=== PATIENT | female | born 1990 | race Caucasian/White ===

== ENCOUNTER 2017-09-01 07:44 | Inpatient (IN) ==
[2017-09-01] MEDS ORDERED: Famotidine 20 MG/2 ML VIAL IVP ONE (08:10)
[2017-09-01] MEDS ORDERED: Metoclopramide 10 MG/2 ML VIAL IVP ONE (08:10)
[2017-09-01] MEDS ORDERED: Ringers Solution, Lactated 1,000 ML IVC ONE (08:10)
[2017-09-01] MEDS ORDERED: CeFAZolin Premix DUPLEX 2,000 MG/50 ML BAG IVPB ONE (08:10)
[2017-09-01] MEDS ORDERED: Ringers Solution, Lactated 1,000 ML IVC SCH (08:15)
[2017-09-01 08:21] LABS: Basophils # 0.1 K/mcL (0.0-0.2); Basophils % 0.4 %; Eosinophils # 0.1 K/mcL (0.0-0.6); Eosinophils % 0.7 %; Hematocrit 28.2 % (35.3-44.9); Hemoglobin 8.6 g/dL (11.5-15.4); Immature Granulocytes % 1.1 % (0-4); Lymphocytes # 2.6 K/mcL (0.6-4.6); Lymphocytes % 19.2 %; Mean Corpuscular HGB Conc 30.5 g/dL (31.6-35.5); Mean Corpuscular Hemoglobin 23.5 pg (28.0-33.3); Mean Platelet Volume 9.5 fL (9.4-12.4); Monocytes # 0.6 K/mcL (0.0-1.3); Monocytes % 4.7 %; Neutrophils # 9.9 K/mcL (1.6-8.9); Platelet Count 296 K/mcL (140-400); Red Blood Count 3.66 M/mcL (3.82-4.97); Red Cell Distribution Width 15.9 % (11.5-14.5); Segmented Neutrophils % 73.9 %
[2017-09-01] MEDS ORDERED: Albuterol 2.5 MG/3 ML NEBULIZER IH ONE (08:24)
--- NOTE | 2017-09-01 08:33 | Anesthesia Evaluation PreOp ---
Date of Encounter: 09/01/17 Time of Encounter: 08:40 - Past History Planned Operation: Repeat Cardiac History: Denies any Significant Hx Pulmonary History: Smoker POLITICAL SCIENCE INSTRUCTOR History: Denies Any Significant HX Other Medical History: Denies Any Significant HX Anesthesia History: No Prior Anesthetic Complications : Yes (37 weeks) Test: Positive () Alcohol Use: none Drug use: none Medications and Allergies Ferrous Sulfate 324 mg PO BID #60 tablet. 08/05/17 [Rx] 3 Allergy/AdvReac Type Severity Reaction Status Date / Time No Known Allergies Allergy Verified 08/05/17 15:42 - Meds/Allergy Pre-op Review Medications Reviewed: Yes Allergies Reviewed: Yes Beta Blockers on Current Med List: No Anesthesia Results - Labs 09/01/17 08:05 Laboratory Tests 09/01/17 08:05 Hgb 8.6 L Hct 28.2 L Plt Count 296 Anesthesia Exam O2 Sat Height 1.55 m Weight 68 kg Height: 5'1 Weight: 149 lbs NPO (# of Hours): MN Pain Scale: 0 - HEENT Pupil (Motor): Pupils equal, EOMI Mallampati: II Teeth: Missing, Poor dentition Oral Opening: Greater than 3 - POLITICAL SCIENCE INSTRUCTOR LOC: Oriented POLITICAL SCIENCE INSTRUCTOR Motor: Normal RUE, Normal LUE, Normal RLE, Normal LLE, Normal Face POLITICAL SCIENCE INSTRUCTOR Sensory: Normal: RUE, LUE, RLE, LLE, Face - Cardiac Rhythm: Regular Murmur: None JVD: No Carotid Bruit: No - Pulmonary Breath Sounds: bilateral Clear Respiratory Effort: Symmetrical Anesthesia Assess/Plan ASA Score: 2 Modified [place] Scale for Level of Consciousness: Cooperative, oriented, and tranquil Anesthetic Plan: Regional Monitoring Plan: Standard Monitors Recovery Plan: PACU (Discussed SAB, possible GA, agrees to proceed)
--- NOTE | 2017-09-01 08:39 | OB/GYN History & Physical ---
Date of Encounter: 09/01/17 Time of Encounter: 08:36 Assessment and Plan (1) 39 weeks gestation of Current visit: Yes Status: Acute (2) Previous delivery affecting , antepartum Current visit: Yes Status: Acute Informed consent previously obtained. All questions answered for the patient. (3) Anemia affecting , antepartum Current visit: Yes Status: Acute Type and screen ordered. Anesthesia aware. (4) Tobacco smoking affecting , antepartum Current visit: Yes Status: Acute Patient has been counseled. (5) Marijuana smoker Current visit: Yes Status: Acute History of Present Illness Chief complaint: repeat section HPI: Ms. Wilson is a 26 year old female G 4 P 2-0-1-2 at 39 0/7 weeks admitted for repeat delivery. She reports this morning she had some leaking after going to the bathroom. She denies any contractions or vaginal bleeding. She reports good movement. complicated by late transfer of care and limited care. She also tested positive and admitted to THC use throughout the . She is anemic and has been taking iron. Past Med Surg Social Fam HX - Past Medical History Source: patient Medical history: no medical history Psychiatric history: anxiety, depression - Past Surgical History Surgical History: (x2) - Social History Smoking Status: Current every day smoker Packs per day: 0.5 Smokeless Tobacco Status: No Alcohol use: none Drug use: marijuana - Family History Brother Living Status: Hx Family Respiratory Disorders: Yes (Asthma) Mother Living Status: Still Living Hx Family Cardiac Disorders: No Hx Family Respiratory Disorders: Yes (COPD) Hx Family Cancer: Yes (Ovarian cancer) Hx Family GI Disorders: No Hx Family Genitourinary Disorders: No Hx Family Endocrine Disorder: No Hx Family Musculoskeletal Disorders: No Hx Family Neuromuscular Disorders: No Hx Family Neurologic Disorders: No Hx Family HEENT Disorders: No Hx Family Autoimmune Disorders: No Hx Family Reproductive Disorders: No Hx Family Psychosocial Disorders: Yes (Anxiety and Depression) Hx Family Medical Disorders: No Obstetrical History - Pregnancies : 4 Para: 2 Ab's: 1 Livin - History/Complications History/Complications: anemia and sections Medications and Allergies Ferrous Sulfate 324 mg PO BID #60 tablet. 08/05/17 [Rx] 3 Allergy/AdvReac Type Severity Reaction Status Date / Time No Known Allergies Allergy Verified 08/05/17 15:42 Review of System OB All systems PM: reviewed and no additional remarkable complaints except as stated Exam - Constitutional Constitutional: well developed, thin (dentition in poor condition and repair) - Neck Neck exam: full ROM - Lungs Respiratory exam: CTAB - Cardiovascular Cardiovascular exam: RRR - Abdomen Abdomen: Present: bowel sounds normal, gravid, non tender - Vulva Vulva: bilateral: normal - Vagina Vagina: Present: normal moisture Results Result Diagrams: 09/01/17 08:05 Abnormal lab results WBC 13.4 K/mcL (4.3-11.1) H 09/01/17 08:05 RBC 3.66 M/mcL (3.82-4.97) L 09/01/17 08:05 Hgb 8.6 g/dL (11.5-15.4) L 09/01/17 08:05 Hct 28.2 % (35.3-44.9) L 09/01/17 08:05 MCV 77.0 fL (83.0-100.0) L 09/01/17 08:05 MCH 23.5 pg (28.0-33.3) L 09/01/17 08:05 MCHC 30.5 g/dL (31.6-35.5) L 09/01/17 08:05 RDW 15.9 % (11.5-14.5) H 09/01/17 08:05 Neutrophils # 9.9 K/mcL (1.6-8.9) H 09/01/17 08:05 All other labs normal. - VTE Reasons for not Prescribing Prophylaxis: Treatment not Indicated - Low risk for VTE
[2017-09-01] MEDS ORDERED: *HR* FentaNYL (PF) 100 MCG/2 ML VIAL ONE (08:40)
[2017-09-01] MEDS ORDERED: Morphine Sulfate/PF 5mg/10mL Vial ONE (08:40)
[2017-09-01] MEDS ORDERED: *HR* Phenylephrine 10 MG/ML VIAL ONE (08:40)
[2017-09-01] MEDS ORDERED: *HR* Oxytocin 10 UNIT/ML VIAL IM ONE (08:40)
[2017-09-01 08:44] LABS: Amphetamine Screen,Urine Negative ng/mL (Cutoff=1000); Barbiturate Screen,Urine Negative ng/mL (Cutoff=200); Benzodiazepines Screen,Urine Negative ng/mL (Cutoff=200); Cannabinoid Screen,Urine Positive ng/mL (Cutoff = 50); Cocaine Screen,Urine Negative ng/mL (Cutoff= 300); Opiate Screen,Urine Negative ng/mL (Cutoff=300); Phencyclidine Screen,Urine Negative ng/mL (Cutoff=25)
[2017-09-01] MEDS ORDERED: MORPHINE SUL Oral CONC 10 MG/0.5 ML ORAL.SYG SL PRN (09:32)
[2017-09-01] MEDS ORDERED: Ondansetron 4 MG/2 ML VIAL IVP PRN ×2 (09:32→18:49)
[2017-09-01] MEDS ORDERED: Ringers Solution, Lactated 1,000 ML ONE (09:45)
[2017-09-01] MEDS ORDERED: EPHEDrine 50 MG/ML VIAL ONE (09:50)
--- NOTE | 2017-09-01 10:08 | Anesthesia Procedures ---
Date of Encounter: 09/01/17 Time of Encounter: 10:06 Procedures: Anesthesia - Epidural/Spinal Patient ID/Chart reviewed: Yes Patient examined: Yes OB Eval: Gestational age: 38 OB Eval: : 2 OB Eval: Hx Para: 1 OB Eval: Dilated at (cm): 2 OB Eval: Contractions: Non-stressed pattern Consent Obtained: Yes Supplemental Oxygen: None/Room Air Site Prep: Aseptic Technique, Sterile prep and drape, 0.5% Chlorhexidine/Alcohol Patient position: upright Local Anesthetic: Lidocaine 1% Amount of Local Anesthetic used: 3 Interspace Used: L2-L3 Loss of Resistance (DALTON): No Blood: No CSF: Yes Paresthesia: No Spinal Needle Gauge: 25 Spinal Dose: marcaine 12, duramorph 0.3, fentanyl 10 mcg Procedure: aseptic, tolerated well, VSS, effective Vitals + FHT's: 112/ 80 76 16 fht 133
[2017-09-01] MEDS ORDERED: Ondansetron 4 MG/2 ML VIAL ONE (10:20)
--- NOTE | 2017-09-01 10:42 | OB/GYN Procedure Note ---
Section - Date of procedure: 09/01/17 Preop diagnosis: desires repeat Post-op diagnosis: same Procedure: section, repeat low transverse Surgeon: Breanne Sparks Estimated blood loss (cc): 400 Was there an assistant portfolio manager present: Yes Bridge Operator Slip: Monie Marquez Anesthesiologist: Donnie Garcia Cnc Machinist: Cisco Snow Anesthesia Type: Spinal section complications: none Disposition: L&D Recovery Room Specimens: Placenta - Infant (s) A Delivery Date: 09/01/17 Delivery Time: 10:01 Presentation: vertex Gender: Male Viability: Viable Pounds: 8 Ounces: 0 Gram Weight: 3.62 kg at 1 minute: 9 at 5 minutes: 9 Specimens collected: cord blood Placenta: spontaneous Cord: 3 umbilical vessels - Narrative Narrative: Patient was taken to the operative suite and placed under spinal anesthetic. She was then prepped and draped in normal sterile fashion in the dorsal supine position. Timeout was then performed. Antibiotics were given at room time. SCDs are on and active. Pfannenstiel skin incision is then made and carried through to underlying layer of fascia. The fascia was then incised in the midline and incision extended laterally with the Wolff scissors. The fascia was tented up and dissected off the rectus muscles sharply. The rectus muscles were in the midline and the peritoneum was tented up and entered sharply with the Metzenbaum scissors. The peritoneal incision was then extended bluntly. The bladder blade was then inserted and the vesicouterine peritoneum was entered sharply. Bladder flap was created digitally. A low transverse uterine incision was then made. The infant vertex was brought to the incision and the infant was delivered using fundal pressure. There was a loose nuchal cord that was reduced. Cord was clamped and cut. was handed to waiting nursery staff. Placenta delivered spontaneously complete and intact with a three-vessel cord. The uterus was cleared of all clots and debris using moist laparotomy sponge. The uterine incision was then closed using 0 Vicryl in a running locked fashion. A second layer of the same suture was used to obtain excellent hemostasis. The abdomen was then cleared of all clots and debris using copious irrigation. The fascial incision was then closed using 0 Vicryl in a running fashion. The skin was closed using 4-0 Vicryl in a subcuticular fashion. Steri- Strips and sterile dressing are then placed. Mother and taken to recovery in stable condition.
--- NOTE | 2017-09-01 13:17 | Anesthesia Evaluation Post Op ---
Date of Encounter: 09/01/17 Time of Encounter: 13:16 - Lungs Lungs: Clear Ascult./Percussion - Airway Airway: Non-obstructed - Cardiovascular Regular Rate - Mental Status Mental Status: Alert & Oriented, Answers Appropriately - Pain Pain Scale: 2 Pain Scale used: Numeric (1 - 10) - Nausea Vomiting Nausea Vomiting: Not Present - Hydration Hydration: NPO - Discharge PostOp Status: Transfer Patient to floor (awake, VSS, pain controlled, discharge to floor)
[2017-09-01] MEDS ORDERED: Metoclopramide 10 MG/2 ML VIAL IVP PRN (18:49)
[2017-09-01] MEDS ORDERED: Sennosides 8.6 MG TABLET PO PRN (18:49)
[2017-09-01] MEDS ORDERED: *HR* OxyCODONE Immed Rel 5 MG TABLET PO PRN (18:49)
[2017-09-01] MEDS ORDERED: Simethicone 80 MG TAB.CHEW PO PRN (18:49)
[2017-09-01] MEDS ORDERED: Acetaminophen 325 MG TABLET PO PRN (18:49)
[2017-09-01] MEDS ORDERED: Oxytocin 20 units/ LR 1000 mL 20 UNIT/1,000 ML BAG IVC SCH ×2 (18:49)
[2017-09-01] MEDS ORDERED: *HR* OxyCODONE/APAP 5/325 TABLET PO PRN (18:49)
[2017-09-01] MEDS: Ibuprofen 600 MG TABLET PO PRN (22:17)
[2017-09-02 04:44] LABS: Basophils % 0.4 %; Eosinophils # 0.1 K/mcL (0.0-0.6); Eosinophils % 0.9 %; Hematocrit 25.5 % (35.3-44.9); Hemoglobin 7.8 g/dL (11.5-15.4); Immature Granulocytes % 0.8 % (0-4); Lymphocytes # 2.2 K/mcL (0.6-4.6); Lymphocytes % 21.3 %; Mean Corpuscular HGB Conc 30.6 g/dL (31.6-35.5); Mean Corpuscular Hemoglobin 23.7 pg (28.0-33.3); Mean Corpuscular Volume 77.5 fL (83.0-100.0); Mean Platelet Volume 9.6 fL (9.4-12.4); Monocytes # 0.7 K/mcL (0.0-1.3); Monocytes % 6.9 %; Neutrophils # 7.2 K/mcL (1.6-8.9); Platelet Count 239 K/mcL (140-400); Red Blood Count 3.29 M/mcL (3.82-4.97); Red Cell Distribution Width 15.9 % (11.5-14.5); Segmented Neutrophils % 69.7 %
[2017-09-02] MEDS: Prenatal Vit/FA 1 EACH TABLET PO SCH (09:01)
[2017-09-02] MEDS: Ibuprofen 600 MG TABLET PO PRN ×2 (09:02→20:01)
--- NOTE | 2017-09-02 10:52 | OB/GYN Progress Note ---
Date of Encounter: 09/02/17 Time of Encounter: 10:49 - Assessment and Plan (1) S/P section Current Visit: Yes Status: Acute Pt meeting post-op milestones. Anticipate discharge home POD#2-3. (2) Nicotine addiction Current Visit: Yes Status: Acute Qualifiers: Nicotine product type: cigarettes Substance use status: uncomplicated Qualified Code(s): F17.210 - Nicotine dependence, cigarettes, uncomplicated (3) Marijuana smoker Current Visit: Yes Status: Acute Subjective - Subjective Patient reports: appetite normal, voiding normally, pain well controlled, ambulating normally : doing well Objective - Vital Signs Latest vital signs: Vital Signs Temp Pulse Pulse Resp BP Pulse Ox 09/02/17 08:35 98.1 F 70 16 101/63 100 09/02/17 04:20 97.7 F 74 14 100/63 99 09/02/17 01:30 98.3 F 75 14 107/64 100 09/01/17 19:15 97.9 F 72 16 106/63 97 09/01/17 16:00 97.5 F L 76 65 16 107/59 100 09/01/17 15:20 97.7 F 73 61 14 110/64 100 09/01/17 14:20 98.0 F 72 68 14 112/70 09/01/17 13:50 97.7 F 76 72 14 110/63 100 09/01/17 13:20 97.8 F 67 70 14 114/57 99 Intake and Output 09/01/17 09/02/17 09/02/17 23:59 07:59 15:59 Intake Total 250 / 250 Output Total 900 / 900 1000 / 1000 Balance -900 / -900 -1000 / -1000 250 / 250 Intake: Oral 250 / 250 Output: Catheter 900 / 900 1000 / 1000 Other: Weight 63.004 kg Patient Weight 09/02/17 23:59 Weight 63.004 kg - Exam Lungs: bilateral: normal Chest: Normal S1, Normal S2 Extremities: Present: normal Abdomen: Present: soft, tenderness (appropriately tender ) Incision: Present: dressed (dressing dry and intact) Uterus: Present: firm Fundal Height: 0 (U/U) - Labs Labs: Laboratory Results - last 24 hr 09/01/17 09/02/17 10:45 04:09 WBC 10.3 RBC 3.29 L Hgb 7.8 L Hct 25.5 L MCV 77.5 L MCH 23.7 L MCHC 30.6 L RDW 15.9 H Plt Count 239 MPV 9.6 Immature Gran % 0.8 Seg Neutrophils % 69.7 Lymphocytes % 21.3 Monocytes % 6.9 Eosinophils % 0.9 Basophils % 0.4 Neutrophils # 7.2 Lymphocytes # 2.2 Monocytes # 0.7 Eosinophils # 0.1 Basophils # 0.0 Blood Type A POSITIVE Antibody Screen POSITIVE Antibody Identification Anti-Sara
--- NOTE | 2017-09-03 07:07 | Discharge Summary ---
Date of Encounter: 09/03/17 Time of Encounter: 07:04 - Discharge Diagnosis (1) S/P section Priority: Primary Status: Acute Comments: Pt meeting post-op milestones. Baby is for adoption. Pt desires discharge home today. (2) Nicotine addiction Priority: Secondary Status: Acute Qualifiers: Nicotine product type: cigarettes Substance use status: uncomplicated Qualified Code(s): F17.210 - Nicotine dependence, cigarettes, uncomplicated (3) Marijuana smoker Priority: Secondary Status: Acute - Discharge Medications Prescriptions: OxyCODONE/APAP 5/325 [Percocet 5/325 MG] 1 each PO Q4HR PRN 3 Days #18 tablet PRN Reason: Moderate pain 4-6 Ibuprofen [Motrin] 600 mg PO Q6HR PRN #30 tablet PRN Reason: Cramping Docusate [Colace] 100 mg PO BID #30 capsule Ferrous Sulfate 325 mg PO DAILY #30 tablet Home Medications: Docusate [Colace] 100 mg PO BID #30 capsule 09/03/17 [Rx] Ferrous Sulfate 325 mg PO DAILY #30 tablet 09/03/17 [Rx] Ibuprofen [Motrin] 600 mg PO Q6HR PRN #30 tablet 09/03/17 [Rx] OxyCODONE/APAP 5/325 [Percocet 5/325 MG] 1 each PO Q4HR PRN 3 Days #18 tablet [Rx] Vit/FA 1 each PO DAILY tablet 09/03/17 [Rx] Allergies/Adverse Reactions: 3 Allergy/AdvReac Type Severity Reaction Status Date / Time No Known Allergies Allergy Verified 08/05/17 15:42 Data Procedures and tests throughout hospitalization: Laboratory Tests 09/01/17 09/01/17 09/01/17 08:05 08:05 10:45 WBC 13.4 H RBC 3.66 L Hgb 8.6 L Hct 28.2 L MCV 77.0 L MCH 23.5 L MCHC 30.5 L RDW 15.9 H Plt Count 296 MPV 9.5 Immature Gran % 1.1 Seg Neutrophils % 73.9 Lymphocytes % 19.2 Monocytes % 4.7 Eosinophils % 0.7 Basophils % 0.4 Neutrophils # 9.9 H Lymphocytes # 2.6 Monocytes # 0.6 Eosinophils # 0.1 Basophils # 0.1 Urine Opiates Screen Negative Ur Barbiturates Screen Negative Ur Phencyclidine Scrn Negative Ur Amphetamines Screen Negative U Benzodiazepines Scrn Negative Urine Cocaine Screen Negative U Marijuana (THC) Screen Positive H Blood Type A POSITIVE Antibody Screen POSITIVE Antibody Identification Anti-Russellka 09/02/17 04:09 WBC 10.3 RBC 3.29 L Hgb 7.8 L Hct 25.5 L MCV 77.5 L MCH 23.7 L MCHC 30.6 L RDW 15.9 H Plt Count 239 MPV 9.6 Immature Gran % 0.8 Seg Neutrophils % 69.7 Lymphocytes % 21.3 Monocytes % 6.9 Eosinophils % 0.9 Basophils % 0.4 Neutrophils # 7.2 Lymphocytes # 2.2 Monocytes # 0.7 Eosinophils # 0.1 Basophils # 0.0 Urine Opiates Screen Ur Barbiturates Screen Ur Phencyclidine Scrn Ur Amphetamines Screen U Benzodiazepines Scrn Urine Cocaine Screen U Marijuana (THC) Screen Blood Type Antibody Screen Antibody Identification Date of admission: 09/01/17 07:44 Primary care physician: PCP NONE Consults: 09/01/17 18:49 Consult to Able Bodied Tankerman (W&C) [CONS] Routine Reason For Exam: Reason for SW Consult: limited PNC, +THC, planned adoption Discharging clinician: Faith Awad Anticipated date of discharge: 09/03/17 - Patient Status Disposition: Home, Self-Care Condition: Good Functional capacity at discharge: independent ambulation Overall status at discharge: patient is progressing back to baseline - Discharge Instructions Follow Up With: NONE,PCP [Primary Care Provider] - Breanne Sparks DO [Partnered Physician] - - Diet and Activity Activity: increase activity as tolerated Diet: regular diet Hospital Course Reason for admission: section Delivery: section Episiotomy: none Laceration: none Other procedures: none complications: none Discharge diagnosis: IUP at term delivered baby: male Hospital course: - Date of procedure: 09/01/17 Preop diagnosis: desires repeat Post-op diagnosis: same Procedure: section, repeat low transverse Surgeon: Breanne Sparks Estimated blood loss (cc): 400 Was there an insurance claims assistant present: Yes Health Safety Instructor: Monie Marquez Anesthesiologist: Donnie Garcia Attending Radiologist: Cisco Snow Anesthesia Type: Spinal section complications: none Disposition: L&D Recovery Room Specimens: Placenta - Infant (s) Infant A Delivery Date: 09/01/17 Infant Delivery Time: 10:01 Presentation: vertex Gender: Male Viability: Viable Pounds: 8 Ounces: 0 Gram Weight: 3.62 kg at 1 minute: 9 at 5 minutes: 9 Specimens collected: cord blood Placenta: spontaneous Cord: 3 umbilical vessels Time Attestation: Total time spent providing and/or coordinating discharge services: Time Spent: Less than 30 minutes - VTE Reasons for not Prescribing Prophylaxis: Treatment not Indicated - Low risk for VTE Documentation of Mechanical Device: Intermittent pneumatic compression device Exam - Constitutional Vitals: Temp Pulse Resp BP Pulse Ox 98.3 F 94 16 125/74 100 09/02/17 19:20 09/02/17 19:20 09/02/17 19:20 09/02/17 19:20 09/02/17 19:20 General appearance IM: A&O X 3 - Respiratory Respiratory exam: Present: CTAB - Cardiovascular Cardiovascular exam IM: Present: RRR - GI/Abdominal GI/Abdominal exam IM: soft, no peritoneal signs Incision: intact (no s/sx infection) - Uterine Tone: Firm Uterus Position: 1 Finger Below Umbilicus - Extremities Exam Extremities exam IM: Present: normal inspection - Neurological Exam Neurological exam: normal gait, oriented X3 - Psychiatric Additional comments: pt reports good mood - Other Additional findings: OARRS reviewed. Pt declines contraception at this time. She is considering her options.
[2017-09-03 09:20] VITALS: BP 103/65
[2017-09-03] MEDS: Prenatal Vit/FA 1 EACH TABLET PO SCH (09:39)
[2017-09-03] MEDS: Ibuprofen 600 MG TABLET PO PRN (09:46)
== END 2017-09-03 13:25 | disposition home or self-care (01) | DRG 540 ==
LOC: 1NENULAB 07:44 → 1NENUOBS 13:37
PROVIDERS: ADMIT Obstetrics & Gynecology; ATTEND Obstetrics & Gynecology